=== PATIENT | female | born 1995 | race Caucasian/White ===

== ENCOUNTER → 2019-01-14 07:57 | Outpatient (CLI) | payer OTHER, SELFPAY ==
[2018-12-19 07:04] VITALS: BMI 25.5
--- NOTE | 2019-01-16 08:03 | PFT ---
INTRODUCTION: The patient is a 24-year-old female that presents for pulmonary function studies secondary to a diagnosis of dyspnea. Respiratory therapy reports good patient effort. Bronchodilators were used during testing. INTERPRETATION: Forced expiration spirometry demonstrates no evidence of a large airways obstructive ventilatory defect. There was no significant response to aerosolized bronchodilators. Spirograms are of good quality and plateau normally. Body plethysmography was performed and reveals a decreased TLC to 5.11 L, 85% of predicted, indicative of a mild restrictive ventilatory impairment. The remainder of the lung volumes are symmetrically reduced. Diffusing capacity by single breath CO is within normal limits. IMPRESSION: Isolated mild restrictive ventilatory impairment.
== END ==
PROVIDERS: Family Provider Family Medicine; PCP Family Medicine; Referring Provider Internal Medicine Critical Care Medicine; Visit Provider Internal Medicine Critical Care Medicine
DX: R06.09 Other forms of dyspnea (principal)
CPT/HCPCS: 94060; 94726; 94729

== ENCOUNTER → 2019-02-20 10:49 | Outpatient (CLI) | payer OTHER, SELFPAY ==
[2019-01-21 07:49] VITALS: BMI 25.5
[2019-02-17 07:54] VITALS: BMI 25.5
[2019-02-20 11:23] VITALS: PULSE 103; PULSE 105; PULSE 107; PULSE 111; PULSE 71; PULSE 74; PULSE 85; O2SAT 93; O2SAT 95; O2SAT 96; O2SAT 97; O2SAT 98; O2SAT 99
--- NOTE | 2019-02-20 15:13 | PCM.PSN.6M ---
PSN 6 Minute Walk Test - 6 Minute Walk Test 6 Minute Walk Test: 6 Minute Walk Test PSN:6-Minute Walk Test Start: 02/20/19 11:22 Freq: Status: Active Protocol: [id number].[id number] Document 02/20/19 11:23 MARISOL (Rec: 02/20/19 11:25 JLA [id number]) 6 Minute Walk Test Date Performed 02/20/19 Time Performed 11:00 Height 5 ft 8 in Weight: 74.843 kg Weight in Pounds 165.[address]: Kelsey Duarte Assistive device used: None Pre-test Oxygen Delivery Method Room Air Pulse Ox (%) 97 Pulse Rate (60-100 beats/min) 71 Dyspnea Marcial Scale (0-10) 0 Exertion Marcial Scale (6-20) 6 1st minute Oxygen Delivery Method Room Air Pulse Ox (%) 93 Pulse Rate (60-100 beats/min) 85 2nd minute Oxygen Delivery Method Room Air Pulse Ox (%) 98 Pulse Rate (60-100 beats/min) 105 H 3rd minute Oxygen Delivery Method Room Air Pulse Ox (%) 95 Pulse Rate (60-100 beats/min) 103 H 4th minute Oxygen Delivery Method Room Air Pulse Ox (%) 97 Pulse Rate (60-100 beats/min) 105 H 5th minute Oxygen Delivery Method Room Air Pulse Ox (%) 96 Pulse Rate (60-100 beats/min) 107 H 6th minute Oxygen Delivery Method Room Air Pulse Ox (%) 98 Pulse Rate (60-100 beats/min) 111 H Dyspnea Marcial Scale (0-10) 2 Exertion Marcial Scale (6-20) 12 Post-test Oxygen Delivery Method Room Air Pulse Ox (%) 99 Pulse Rate (60-100 beats/min) 74 Full Laps Walked 24 Partial Lap, Number of Tiles Walked 50 Total Distance Walked (ft) 1466 - Interpretation Interpretation: The patient was able to ambulate 1466 feet over the course of 6 minutes on room air with no assistive devices or breaks. The patient did desaturate as low as 93%. This is a normal walking oximetry. - Recommendations Recommendations: No supplemental oxygen is indicated at this time.
== END ==
PROVIDERS: Family Provider Family Medicine; PCP Family Medicine; Referring Provider Nurse Practitioner Acute Care; Visit Provider Nurse Practitioner Acute Care
DX: R06.09 Other forms of dyspnea (principal)
CPT/HCPCS: 94618

== ENCOUNTER 2019-05-27 16:00 | Outpatient (RCR) | payer OTHER, SELFPAY ==
[2019-02-17 07:54] VITALS: BMI 25.5
--- NOTE | 2019-04-21 15:48 | HP.SP.AD_ITS ---
History - History Date of Eval: 04/16/19 Date of Onset of Diagnosis: Age 12 Previous speech therapy: No Other Relevant Medical History/Diagnoses/Surgery: Dyspnea on exertion, hypertrophy of tonsils, heart condition, anxiety Medications related to this diagnosis: Metoprolol Smoking Status: Never smoker Hx Smoking: No - Pain Is pain an issue with your current prescribed condition?: No - Personal Education History: Bachelors. 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 Right Hearing Abillity: Normal Left Hearing Abillity: Normal Patients Living Arrangements: With Family Patient Allergies - Allergies Allergies azithromycin [From Zithromax] Allergy (Severe, Verified 02/17/19 07:49) Nausea latex Adverse Reaction (Verified 02/17/19 07:49) Unknown Objective Voice - Observational Assessment Maximum Phonation Time in seconds: 7 S/Z Ratio: .83 Sustained /s/: 5 Sustained /z/: 6 Greater than 1:4 (indicates dysfunction): No Other Impressions - Comments isorder -: The pt was seen today for possible underlying vocal fold dysfunction (pt has not been seen by an ENTfor this diagnosis). Pt reports worsening symptoms over the 12 years consisting of episodes of primary difficulty with inhalation, throat tightness, rapid breathing/shortness of breath, dizziness, and coughing. Patient is unable to identify triggers as episodes happen when she is at rest sitting as well as walking. They occur more frequently when she is walking or moving. She reported they happen nearly every time she is exercising. She has since stopped exercising. Episodes last 5-7 minutes approximately. 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 - Recommendations Treatment Warranted: Yes - Frequency Frequency: 1x/Week Duration: 4 Months Visits in this POC: 8 - Prognosis Prognosis: Good - Goals that are Established: Determination:: Goals will be added/modified as deemed necessary and appropriate. Therapy will be discontinued when results of re-evaluation indicate therapy is no longer needed or lack of progress has been documented. - Goal #1-5 Goal #1: The patient will increase her knowledge of paradoxical vocal fold dysfunction by discussing normal and paradoxical vocal fold motion during breathing to reduce her anxiety and panic during an attack with 80% accuracy in 2/3 sessions. Goal #2: The patient will learn breathing methods in order to control and ultimately prevent an attack by accurately demonstrating said methods independently across 3 consecutive sessions. Education - Patient has Indicated that the Following Identified Educational Needs: None The Patient has indicated that they have no educational or learning abilities that may effect their care.: Yes - Patient Instruction Patient Education: Diagnosis, Treatment Plan, Goals Person Taught: Patient Teaching Method: Discussion Response to teaching: Verbalize understanding
--- NOTE | 2019-07-29 08:11 | HP.SP.DC_ITS ---
ST Discharge Summary - Discharged: Discharge: Cynthia Topete is discharged from speech therapy at [facility] as of 07/11/19 as her goals have been met. She was treated for 4 sessions following her evaluation on 04/16/19 for a diagnosis of other disease of vocal cords with possible vocal fold dysfunction (pt has not been seen by an ENT for this diagnosis). Goals focused on increasing her knowledge of paradoxical vocal fold dysfunction and learning breathing methods in order to control and ultimately prevent an attack. She verbalized what increased her attacks. She reported that pursed breathing strategy has reduced episodes by 90% on her 4th visit. She was given the option for a follow up in June 2019 but cancelled the session due to not needing it. A copy of this discharge summary will be sent to her referring physician.
== END 2019-05-27 19:00 | disposition home or self-care (01) ==
LOC: SP 16:00
PROVIDERS: Family Provider Family Medicine; PCP Family Medicine; Referring Provider Nurse Practitioner Acute Care; Visit Provider Nurse Practitioner Acute Care
DX: J38.3 Other diseases of vocal cords (principal)
CPT/HCPCS: 92507; 92524